=== PATIENT | female | born 1995 | race African-American/Black ===

== ENCOUNTER 2019-04-17 13:50 | Emergency (ER) | payer MEDICAID, OTHER ==
[~2019-04-17] VITALS: Ht 175.3 cm; Wt 100.0 kg
[~2019-04-17 13:50] MED LIST: ABIL5; ALBU17AE26
[2019-04-17] MEDS: IBUPROFEN 800MG TABLET PO ONE (15:03)
[2019-04-17 19:20] VITALS: BP 143/93
== END 2019-04-17 22:57 | disposition home or self-care (01) ==
LOC: ER 13:50
DX: T71.9XXA Asphyxiation due to unspecified cause, initial encounter (principal); R68.84 Jaw pain; J45.909 Unspecified asthma, uncomplicated; Z79.899 Other long term (current) drug therapy; Y08.89XA Assault by other specified means, initial encounter; Y93.89 Activity, other specified; Y92.89 Other specified places as the place of occurrence of the external cause; Y99.8 Other external cause status
CPT/HCPCS: 70110; 81025; 99283

== ENCOUNTER 2022-02-25 13:48 | Emergency (ER) | payer MEDICAID ==
[~2022-02-25] VITALS: Ht 172.7 cm; Wt 95.0 kg
[2022-02-25] MEDS ORDERED: DEXAMETHASONE 10 MG/ML VIAL PO ONE (15:30)
[2022-02-25] MEDS ORDERED: KETOROLAC 30MG/ML VIAL IM ONE (15:30)
[2022-02-25] MEDS ORDERED: FLUT9.9S BOTHNSTRLS (17:11)
[2022-02-25] MEDS ORDERED: GUAI600T26 MT (17:11)
[2022-02-25] MEDS ORDERED: AZIT250T12 MT (17:11)
[2022-02-25] MEDS ORDERED: AMOX-424 MT (17:11)
[2022-02-25 17:35] VITALS: BP 134/77
== END 2022-02-25 17:36 | disposition home or self-care (01) ==
LOC: ER 13:48
DX: J18.9 Pneumonia, unspecified organism (principal); Z20.822 Contact with and (suspected) exposure to COVID-19
CPT/HCPCS: 71046; 81025; 87426; 87804; 96372; 99284; J1100; J1885